=== PATIENT | female | born 1950 | race Caucasian/White ===

== ENCOUNTER 2016-10-20 07:39 | Day surgery (SDC) | payer OTHER ==
[2016-10-20] MEDS ORDERED: Lactated Ringers 1,000 ML IV SCH (07:45)
[2016-10-20] MEDS ORDERED: Propofol 200 MG/20 ML SDV IV ONE (09:00)
--- NOTE | 2016-10-20 09:38 | PCM.OPNOTE ---
- General Post-Op/Procedure Note Date of Surgery/Procedure: 10/20/16 Operative Procedure(s): c scope with loop snare bx Findings: sigmoid diverticulosis sigmoid polyp Pre Op Diagnosis: screening Post-Op Diagnosis: sigmoid diverticulosis. sigmoid polyp Anesthesia Technique: MAC Primary Surgeon: Bernard Thompson Anesthesia Provider: Jerrod Matson Pathology: sigmoid polyp Complications: None Condition: Good Free Text/Narrative:: see dictation
--- NOTE | 2016-10-20 10:42 | OR ---
DATE OF OPERATION: 10/20/2016 SURGEON: Bernard Thompson MD PROCEDURE PERFORMED: Colonoscopy with hot loop biopsy. PREOPERATIVE DIAGNOSIS: Colon cancer screening. POSTOPERATIVE DIAGNOSIS: Distal sigmoid polyp and sigmoid diverticulosis. INDICATIONS FOR PROCEDURE: This is a 65-year-old white female, who presents for a colonoscopy. She was offered and accepted the same. DESCRIPTION OF PROCEDURE: After an excellent IV sedation was administered, digital rectal exam was performed. No marked abnormality was noted. Flexible colonoscope was inserted and advanced to the cecum without difficulty. The following findings were noted. Ascending colon, unremarkable. Transverse colon, unremarkable. Descending colon, unremarkable. Sigmoid, mild diverticulosis and at the distal end of the sigmoid, a small polypoid lesion, biopsied with the hot loop snare and retrieved and sent for permanent. The rectum was unremarkable. Colon was deflated, scope was removed. The patient tolerated the procedure well, and was taken to recovery in good condition. /[id number] SUSANNA/TRACI
[2016-10-20 10:53] VITALS: BP 116/69
== END 2016-10-20 10:46 | disposition home or self-care (01) ==
LOC: FB.SDS 07:39
PROVIDERS: ATTEND Surgery
DX: Z12.11 Encounter for screening for malignant neoplasm of colon (principal); D12.5 Benign neoplasm of sigmoid colon; K57.30 Diverticulosis of large intestine without perforation or abscess without bleeding; Z88.0 Allergy status to penicillin; Z79.899 Other long term (current) drug therapy
CPT/HCPCS: 45385; 88305; J2704; J7120

== ENCOUNTER 2018-08-25 08:55 | Day surgery (SDC) | payer MEDICARE, OTHER ==
[2018-08-25] MEDS ORDERED: Midazolam 1 MG/ML 2 ML SDV IV ONE (08:56)
[2018-08-25] MEDS ORDERED: Ondansetron 4 MG/2 ML SDV IVPUSH ONE (08:56)
[2018-08-25] MEDS ORDERED: Ketorolac 30 MG/ML SDV IVPUSH ONE (08:56)
[2018-08-25] MEDS ORDERED: Propofol 200 MG/20 ML SDV IV ONE (08:56)
[2018-08-25] MEDS ORDERED: fentaNYL 100 MCG/2 ML SDV IV ONE (08:56)
[2018-08-25] MEDS ORDERED: Lactated Ringers 1,000 ML IV SCH (09:00)
[2018-08-25] MEDS ORDERED: cefOXitin 2 GM in Sodium Chloride 0.9% 100 ML IV ONE (10:30)
[2018-08-25] MEDS ORDERED: cefOXitin 2 GM Vial IVPUSH ONE (10:30)
[2018-08-25] MEDS ORDERED: Lidocaine 1% with EPINEPHrine 1:100,000 20 ML MDV ONE (11:26)
[2018-08-25] MEDS ORDERED: Bupivacaine 0.5% 30 ML SDV ONE (11:26)
--- NOTE | 2018-08-25 11:46 | PCM.OPNOTE ---
- General Post-Op/Procedure Note Date of Surgery/Procedure: 08/25/18 Operative Procedure(s): lateral internal sphincterotomy Findings: fissure in ano Pre Op Diagnosis: fissure in ano Post-Op Diagnosis: Same Anesthesia Technique: Local (2 ml 1 % lido with epi/0.5% buvipicaine), MAC Primary Surgeon: Bernard Thompson Anesthesia Provider: Wendi Alexandre Pathology: none Complications: None Condition: Good Free Text/Narrative:: see dictation
[2018-08-25] MEDS ORDERED: Acetaminophen/Codeine 300-30 MG Tab PO PRN (11:51)
[2018-08-25 12:58] VITALS: BP 126/76
--- NOTE | 2018-08-25 16:01 | OR ---
DATE OF OPERATION: 08/25/2018 SURGEON: Bernard Thompson MD PROCEDURE PERFORMED: Lateral internal sphincterotomy. PREOPERATIVE DIAGNOSIS: Fissure in ano. POSTOPERATIVE DIAGNOSIS: Fissure in ano. INDICATIONS FOR PROCEDURE: This 67-year-old white female with a history of a fissure in ano. We have been trying to treat this medically and have not been successful. She was offered and accepted a lateral internal sphincterotomy. DESCRIPTION OF OPERATION: After the patient was placed in prone india-knife position, she was given an IV sedation, prepped and draped in the usual sterile manner. Examination revealed a persistent fissure in the posterior midline. The gap between the internal and external sphincter was palpated on the right side. The area overlying this tissue was infiltrated using a 1:1 mixture of 1% lidocaine with epinephrine and 0.5% bupivacaine. A 1-cm incision was then made. Blunt dissection was carried out exposing the internal sphincter and approximately a third of the sphincter diameter was divided using a #11 scalpel blade with resolution of the spasm. The area was irrigated and was closed with interrupted 2-0 Vicryl. Gel-Foam coated with triple antibiotic ointment was used to packed the anus and dressing was applied. The patient tolerated the procedure well and was taken to Recovery in a good condition. /[id number] /YOELL
== END 2018-08-25 12:43 | disposition home or self-care (01) ==
LOC: FB.SDS 08:55
PROVIDERS: ATTEND Surgery
DX: K60.2 Anal fissure, unspecified (principal); Z88.0 Allergy status to penicillin; Z88.1 Allergy status to other antibiotic agents; Z88.8 Allergy status to other drugs, medicaments and biological substances; Z79.899 Other long term (current) drug therapy
CPT/HCPCS: 00902-QZ; J0694; J1885; J2250; J2405; J2704; J3010; J3490; J7120

== ENCOUNTER 2022-02-18 08:55 | Day surgery (SDC) | payer MEDICARE, OTHER ==
[2022-02-18] MEDS ORDERED: Propofol 200 MG/20 ML SDV IV ONE (08:56)
[2022-02-18] MEDS ORDERED: Lactated Ringers 1,000 ML IV SCH (09:00)
[2022-02-18] MEDS ORDERED: Sodium Chloride 0.9% 10 ML Syringe FLUSH PRN (09:00)
[2022-02-18 12:25] VITALS: BP 156/68; PULSE 56
== END 2022-02-18 12:13 | disposition home or self-care (01) ==
LOC: FB.SDS 08:55
PROVIDERS: ATTEND Surgery
DX: Z12.11 Encounter for screening for malignant neoplasm of colon (principal); K57.30 Diverticulosis of large intestine without perforation or abscess without bleeding; Z86.010 Personal history of colon polyps; Z88.0 Allergy status to penicillin; Z79.899 Other long term (current) drug therapy; Z88.1 Allergy status to other antibiotic agents; Z88.8 Allergy status to other drugs, medicaments and biological substances
CPT/HCPCS: 00811-QZ; J2704; J7120

== ENCOUNTER 2022-06-29 18:28 | Emergency (ER) | payer MEDICARE, OTHER ==
[2022-06-29 19:51] LABS: ESTIMATED GFR 69 mL/min (>60)
[2022-06-29] MEDS ORDERED: Iopamidol 755 Mg/ML 100 ML Bottle IV ONE (20:58)
[2022-06-29] MEDS ORDERED: Ertapenem 1 GM in Sodium Chloride 0.9% 50 ML IV ONE (22:12)
[2022-06-29] MEDS ORDERED: Sodium Chloride 0.9% 1,000 ML IV SCH (22:15)
[2022-06-29] MEDS ORDERED: Ertapenem 1 GM Vial ONE (22:22)
[2022-06-30 00:23] VITALS: BP 171/83; PULSE 80
== END 2022-06-30 00:10 | disposition home or self-care (01) ==
LOC: FB.ED 18:28
DX: K57.20 Diverticulitis of large intestine with perforation and abscess without bleeding (principal); I10 Essential (primary) hypertension; Z88.0 Allergy status to penicillin; Z88.8 Allergy status to other drugs, medicaments and biological substances
CPT/HCPCS: 36415; 74177; 80053; 85025; 85651; 86140; 87040; 96361; 96365; 99284; J1335; J3490; J7030; Q9967; 99283

== ENCOUNTER 2024-12-03 08:50 | Emergency (ER) | payer MEDICARE, OTHER ==
[2024-12-03] MEDS ORDERED: Sodium Chloride 0.9% 10 ML Syringe FLUSH PRN (09:17)
[2024-12-03 09:36] LABS: BASOPHILS ABSOLUTE AUTO 0.0 x10-3/uL (0.0-0.1); BASOPHILS PERCENT AUTO 0.4 % (0.2-1.5); EOSINOPHILS ABSOLUTE AUTO 0.1 x10-3/uL (0.0-0.8); EOSINOPHILS PERCENT AUTO 1.1 % (0.6-8.1); LYMPHOCYTES ABSOLUTE AUTO 0.6 x10-3/uL (1.0-4.4); LYMPHOCYTES PERCENT AUTO 13.5 % (18.4-52.1); MEAN PLATELET VOLUME 7.9 fL (7.1-12.4); MONOCYTES ABSOLUTE AUTO 0.3 x10-3/uL (0.3-1.0); MONOCYTES PERCENT AUTO 7.1 % (4.4-15.7); NEUTROPHILS ABSOLUTE AUTO 3.7 x10-3/uL (1.5-6.3); NEUTROPHILS PERCENT AUTO 77.9 % (30.8-76.2); PLATELET COUNT,PLT 221 x10(3)uL (151-488); RED BLOOD CELL COUNT 4.48 x10(6)uL (3.60-5.20); RED CELL DISTRIBUTION WIDTH 13.8 % (12.3-16.5); WHITE BLOOD CELL COUNT,WBC 4.7 x10-3/uL (3.0-10.3)
[2024-12-03 09:41] LABS: BLOOD UREA NITROGEN,BUN 16 mg/dL (7-18); CARBON DIOXIDE,CO2 24 mmol/L (21-32); CHLORIDE,CL 91 mmol/L (100-110); CREATININE 1.0 mg/dL (0.55-1.02); ESTIMATED GFR 60 mL/min (>60); GLUCOSE RANDOM 125 mg/dL (80-116); POTASSIUM,K 3.6 mmol/L (3.5-5.3); SODIUM,NA 124 mmol/L (135-145)
[2024-12-03] MEDS: Ketorolac 30 MG/ML SDV IVPUSH ONE (09:45)
[2024-12-03] MEDS: Ondansetron 4 MG/2 ML SDV IVPUSH ONE ×2 (09:45→13:27)
[2024-12-03 09:47] LABS: A/G RATIO 1.3; ALANINE AMINOTRANSFERASE,ALT 30 U/L (12-36); ASPARTATE AMNIOTRANSFERASE,AST 19 IU/L (5-25); BILIRUBIN TOTAL 0.5 mg/dL (0.1-1.3); PROTEIN TOTAL,TP 6.5 g/dL (6.0-8.0)
[2024-12-03] MEDS: methylPREDNISolone Sodium Succinate 125 MG/2 ML SDV IVPUSH ONE (09:47)
[2024-12-03 09:51] LABS: LACTIC ACID 1.0 mmol/L (0.4-2.0)
[2024-12-03] MEDS: HYDROmorphone 2 MG/ML SDV IVPUSH ONE ×2 (10:56→13:26)
[2024-12-03 13:54] VITALS: BP 149/71; PULSE 56
== END 2024-12-03 14:40 | disposition home or self-care (01) ==
LOC: FB.ED 08:50
DX: G50.0 Trigeminal neuralgia (principal); R11.2 Nausea with vomiting, unspecified; I10 Essential (primary) hypertension; Z88.1 Allergy status to other antibiotic agents; Z88.0 Allergy status to penicillin; Z88.8 Allergy status to other drugs, medicaments and biological substances; Z90.710 Acquired absence of both cervix and uterus; Z90.722 Acquired absence of ovaries, bilateral
CPT/HCPCS: 70450; 80053; 83605; 85025; 86140; 96361; 96374; 96375; 96376; 99284; J1171; J1885; J2405; J2919; J7030

== ENCOUNTER 2024-12-07 04:55 | Inpatient (IN) | payer MEDICARE, OTHER ==
[2024-12-07] MEDS ORDERED: Sodium Chloride 0.9% 10 ML Syringe FLUSH PRN (05:25)
[2024-12-07] MEDS: Iopamidol 755 Mg/ML 100 ML Bottle IV SCH (06:07)
[2024-12-07 06:12] LABS: BASOPHILS ABSOLUTE AUTO 0.1 x10-3/uL (0.0-0.1); BASOPHILS PERCENT AUTO 1.1 % (0.2-1.5); EOSINOPHILS ABSOLUTE AUTO 0.1 x10-3/uL (0.0-0.8); EOSINOPHILS PERCENT AUTO 2.5 % (0.6-8.1); LYMPHOCYTES ABSOLUTE AUTO 0.9 x10-3/uL (1.0-4.4); LYMPHOCYTES PERCENT AUTO 16.8 % (18.4-52.1); MEAN PLATELET VOLUME 7.6 fL (7.1-12.4); MONOCYTES ABSOLUTE AUTO 0.5 x10-3/uL (0.3-1.0); MONOCYTES PERCENT AUTO 9.5 % (4.4-15.7); NEUTROPHILS ABSOLUTE AUTO 3.8 x10-3/uL (1.5-6.3); NEUTROPHILS PERCENT AUTO 70.1 % (30.8-76.2); PLATELET COUNT,PLT 222 x10(3)uL (151-488); RED BLOOD CELL COUNT 4.27 x10(6)uL (3.60-5.20); RED CELL DISTRIBUTION WIDTH 13.6 % (12.3-16.5); WHITE BLOOD CELL COUNT,WBC 5.4 x10-3/uL (3.0-10.3)
[2024-12-07 06:20] LABS: BLOOD UREA NITROGEN,BUN 14 mg/dL (7-18); CARBON DIOXIDE,CO2 26 mmol/L (21-32); CHLORIDE,CL 90 mmol/L (100-110); CREATININE 1.0 mg/dL (0.55-1.02); EST CRCL DRUG DOSING (CG) 38.37 mL/min; ESTIMATED GFR 60 mL/min (>60); GLUCOSE RANDOM 107 mg/dL (80-116); POTASSIUM,K 3.4 mmol/L (3.5-5.3); SODIUM,NA 123 mmol/L (135-145)
[2024-12-07 06:27] LABS: A/G RATIO 1.3; ALANINE AMINOTRANSFERASE,ALT 25 U/L (12-36); ASPARTATE AMNIOTRANSFERASE,AST 11 IU/L (5-25); BILIRUBIN TOTAL 0.4 mg/dL (0.1-1.3); PROTEIN TOTAL,TP 5.9 g/dL (6.0-8.0)
[2024-12-07 07:41] LABS: GLUCOSE,URINE NORMAL (NORMAL); OCCULT BLOOD,URINE NEGATIVE (NEGATIVE)
[2024-12-07 07:42] LABS: APPEARANCE,URINE CLEAR (CLEAR)
[2024-12-07] MEDS ORDERED: Ondansetron 4 MG Tab.DIS PO PRN (11:42)
[2024-12-07] MEDS: Potassium Chloride 20 MEQ Tab.ER PO ONE (12:31)
[2024-12-07] MEDS: Cyanocobalamin (Vitamin B12) 1,000 MCG Tab PO SCH (12:33)
[2024-12-08 07:13] LABS: BASOPHILS ABSOLUTE AUTO 0.1 x10-3/uL (0.0-0.1); BASOPHILS PERCENT AUTO 1.2 % (0.2-1.5); EOSINOPHILS ABSOLUTE AUTO 0.2 x10-3/uL (0.0-0.8); EOSINOPHILS PERCENT AUTO 3.4 % (0.6-8.1); LYMPHOCYTES ABSOLUTE AUTO 1.8 x10-3/uL (1.0-4.4); LYMPHOCYTES PERCENT AUTO 28.1 % (18.4-52.1); MEAN PLATELET VOLUME 7.4 fL (7.1-12.4); MONOCYTES ABSOLUTE AUTO 0.5 x10-3/uL (0.3-1.0); MONOCYTES PERCENT AUTO 8.5 % (4.4-15.7); NEUTROPHILS ABSOLUTE AUTO 3.7 x10-3/uL (1.5-6.3); NEUTROPHILS PERCENT AUTO 58.8 % (30.8-76.2); PLATELET COUNT,PLT 283 x10(3)uL (151-488); RED BLOOD CELL COUNT 4.67 x10(6)uL (3.60-5.20); RED CELL DISTRIBUTION WIDTH 13.6 % (12.3-16.5); WHITE BLOOD CELL COUNT,WBC 6.4 x10-3/uL (3.0-10.3)
[2024-12-08 07:17] LABS: BLOOD UREA NITROGEN,BUN 11 mg/dL (7-18); CARBON DIOXIDE,CO2 31 mmol/L (21-32); CHLORIDE,CL 95 mmol/L (100-110); CREATININE 1.1 mg/dL (0.55-1.02); EST CRCL DRUG DOSING (CG) 34.88 mL/min; ESTIMATED GFR 53 mL/min (>60); GLUCOSE RANDOM 98 mg/dL (80-116); POTASSIUM,K 4.4 mmol/L (3.5-5.3); SODIUM,NA 130 mmol/L (135-145)
[2024-12-08] MEDS: Saccharomyces Boulardii (Probiotic) 250 MG Cap PO SCH (08:40)
[2024-12-08] MEDS: Cyanocobalamin (Vitamin B12) 1,000 MCG Tab PO SCH (11:52)
[2024-12-08 20:50] LABS: CREATININE, URINE - PER VOLUME 71 mg/dL; HOURS COLLECTED Not Provided hr; SODIUM, URINE - PER VOLUME 106 mmol/L
[2024-12-09 06:47] LABS: BLOOD UREA NITROGEN,BUN 18 mg/dL (7-18); CARBON DIOXIDE,CO2 31 mmol/L (21-32); CHLORIDE,CL 96 mmol/L (100-110); CREATININE 1.0 mg/dL (0.55-1.02); EST CRCL DRUG DOSING (CG) 38.74 mL/min; ESTIMATED GFR 60 mL/min (>60); GLUCOSE RANDOM 108 mg/dL (80-116); POTASSIUM,K 4.2 mmol/L (3.5-5.3); SODIUM,NA 130 mmol/L (135-145)
[2024-12-09 12:55] VITALS: BP 124/70; PULSE 70
[2024-12-09 18:12] LABS: OSMOLALITY 268 mOsm/kg (280-303)
[2024-12-09 18:12] LABS: URINE OSMOLALITY 471 mOsm/kg (50-800)
== END 2024-12-09 13:37 | disposition home or self-care (01) | DRG 645 ==
LOC: FB.ED 04:55 → FB.MS 11:40 → OBSVTOIN 12-08 14:13
PROVIDERS: ADMIT Family Medicine; ATTEND Internal Medicine
DX: E22.2 Syndrome of inappropriate secretion of antidiuretic hormone (principal); R26.2 Difficulty in walking, not elsewhere classified; R42 Dizziness and giddiness; R53.1 Weakness; H26.9 Unspecified cataract; H54.7 Unspecified visual loss; E87.8 Other disorders of electrolyte and fluid balance, not elsewhere classified; G50.0 Trigeminal neuralgia; E87.6 Hypokalemia; E86.0 Dehydration; E87.1 Hypo-osmolality and hyponatremia; E53.8 Deficiency of other specified B group vitamins; Z85.42 Personal history of malignant neoplasm of other parts of uterus; I10 Essential (primary) hypertension; Z98.890 Other specified postprocedural states; Z88.0 Allergy status to penicillin; Z88.8 Allergy status to other drugs, medicaments and biological substances; Z79.899 Other long term (current) drug therapy; Z90.710 Acquired absence of both cervix and uterus
CPT/HCPCS: 36415 ×2; 70496; 70498; 70551 ×2; 80048; 80053; 81003; 82947; 83735; 83930; 83935; 84295 ×2; 84300; 84484; 85025 ×2; 93005; A9270 ×13; J7040; Q9967; 94150; 99222; 99231; 99238; J1650